=== PATIENT | female | born 1990 | race Two or more races ===

== ENCOUNTER 2021-06-16 01:23 | Emergency (ER) | payer OTHER ==
[~2021-06-16] VITALS: Ht 165.1 cm; Wt 89.9 kg
[2021-06-16] MEDS ORDERED: ONDANSETRON ODT 4 MG ONE (01:33)
[2021-06-16] MEDS ORDERED: ACETAMINOPHEN 500 MG TABLET ONE (01:33)
--- NOTE | 2021-06-16 01:37 | NUR ---
PT MEDICATED IN TRIAGE FOR N/V AND FEVER
[2021-06-16] MEDS ORDERED: ONDANSETRON ODT 4 MG PO ONE (02:00)
[2021-06-16] MEDS ORDERED: ACETAMINOPHEN 500 MG TABLET PO ONE (02:00)
[2021-06-16 03:48] VITALS: BP 127/64
== END 2021-06-16 04:16 | disposition home or self-care (01) ==
LOC: ED 04:02
DX: U07.1 COVID-19 (principal); J06.9 Acute upper respiratory infection, unspecified
CPT/HCPCS: 71045; 99283; Q0162